=== PATIENT | male | born 1995 | race Caucasian/White ===

== ENCOUNTER 2017-09-30 11:46 | Emergency (ER) | payer BC ==
[~2017-09-30] VITALS: Ht 172.7 cm; Wt 54.5 kg
[2017-09-30 11:48] VITALS: TEMP 98.7
[2017-09-30 12:31] LABS: COLLECTION METHOD CLEAN CATCH
[2017-09-30 12:37] LABS: BASO # 0.1 (0.0-0.2); BASO % 0.8 % (0.0-2.0); EOS # 0.1 (0.0-0.7); EOS % 0.7 % (0-4.0); GRAN # 4.8 (1.4-6.5); GRAN % 65.5 % (42.2-75.2); HEMATOCRIT 46.6 % (36.0-47.0); HEMOGLOBIN 15.9 g/dl (12.5-16.1); LYMPH # 1.6 (1.2-3.4); LYMPH % 21.8 % (20.0-51.0); MEAN CELL VOLUME 90 fl (80.0-95.0); MEAN CORPUSCULAR HEMOGLOBIN 31 pg (26.0-32.0); MEAN CORPUSCULAR HGB CONC 34 g/dl (33.0-37.0); MONO # 0.8 (0.1-0.6); MONO % 10.9 % (1.7-9.3); PLATELET COUNT 324 K/mm3 (130-400); REDCELL DISTRIBUTION WIDTH-CV 11.9 % (11.5-14.5)
[2017-09-30 12:44] LABS: MUCOUS Present /lpf; PH 7 (5-8); SQUAMOUS EPITHELIAL 0-2 /hpf; URINE APPEARANCE Clear; URINE BACTERIA None Seen /hpf; URINE BILIRUBIN Negative (NEGATIVE); URINE BLOOD Negative (NEGATIVE); URINE COLOR Yellow; URINE GLUCOSE Negative (NEGATIVE); URINE KETONE 2+ (NEGATIVE); URINE LEUKOCYTE ESTERASE Negative (NEGATIVE); URINE NITRATE Negative (NEGATIVE); URINE PROTEIN(semi-quant) Negative (NEGATIVE); URINE RBC 0-2 /hpf; URINE UROBILINOGEN Negative (NEGATIVE)
[2017-09-30 12:56] LABS: ACETAMINOPHEN < 10 ug/mL (10-30); ALANINE AMINOTRANSFERASE 29 U/L (21-72); ALBUMIN 5.7 gm/dL (3.5-5.0); ALCOHOL(ethanol),MEDICAL < 10 mg/dL; ALKALINE PHOSPHATASE 85 U/L (50-136); ANION GAP 20 mmol/L (7-16); AST,SGOT 20 U/L (15-37); BILIRUBIN,TOTAL 1.1 mg/dL (0.0-1.0); BLOOD UREA NITROGEN 9 mg/dL (9-20); CALCIUM 9.4 mg/dL (8.4-10.2); CARBON DIOXIDE 17 mmol/L (22-30); CHLORIDE 103 mmol/L (98-107); CREATININE, serum 0.81 mg/dL (0.66-1.25); GLUCOSE 119 mg/dL (74-106); SALICYLATE < 1.0 mg/dL; SODIUM 140 mmol/L (137-145); TOTAL PROTEIN 8.2 gm/dL (6.4-8.2)
[2017-09-30 13:06] LABS: TRICYCLIC ANTIDEPRESS URINE NEGATIVE
[2017-09-30 21:04] VITALS: BP 108/67
[2017-09-30 22:09] VITALS: PULSE 87
== END 2017-09-30 22:20 ==
LOC: COL.ER 11:46
PROVIDERS: Emergency Medicine
DX: F23 Brief psychotic disorder (principal); F60.0 Paranoid personality disorder; Z72.820 Sleep deprivation

== ENCOUNTER → 2019-07-04 | Outpatient (CLI) | payer SELFPAY ==
[2019-07-04 11:17] LABS: BASO % 0.3 % (0.0-2.0); EOS # 0.1 (0.0-0.7); EOS % 1.9 % (0-4.0); GRAN # 4.7 (1.4-6.5); GRAN % 74.9 % (42.2-75.2); HEMATOCRIT 40.1 % (42.0-52.0); HEMOGLOBIN 13.7 g/dl (13.5-18.0); LYMPH # 0.9 (1.2-3.4); LYMPH % 13.5 % (20.0-51.0); MEAN CELL VOLUME 90 fl (80.0-100.0); MEAN CORPUSCULAR HEMOGLOBIN 31 pg (27.0-31.0); MEAN CORPUSCULAR HGB CONC 34 g/dl (33.0-37.0); MEAN PLATELET VOLUME 9.7 fl (7.4-10.4); MONO # 0.6 (0.1-0.6); MONO % 9.1 % (1.7-9.3); PLATELET COUNT 252 K/mm3 (130-400); RED BLOOD COUNT 4.44 M/mm3 (4.20-5.60); REDCELL DISTRIBUTION WIDTH-CV 11.8 % (11.5-14.5)
[2019-07-04 11:36] LABS: ALBUMIN 4.4 gm/dL (3.5-5.0); BILIRUBIN,TOTAL 0.5 mg/dL (0.0-1.0); CREATININE, serum 0.65 (0.66-1.25); POTASSIUM 4.2 mmol/L (3.4-5.0)
[2019-07-04 11:47] LABS: TRICYCLIC ANTIDEPRESS URINE NEGATIVE
[2019-07-04 12:32] LABS: THYROID STIMULATING HORMONE 1.46 uIU/mL (0.465-4.680)
== END ==
LOC: COL.LAB 10:36
PROVIDERS: Psychiatry & Neurology Psychiatry
DX: F20.0 Paranoid schizophrenia (principal)